=== PATIENT | male | born 1980 | race African-American/Black ===

== ENCOUNTER 2025-05-01 08:58 | Emergency (ER) | payer OTHER, SELFPAY ==
--- NOTE | 2025-05-01 | ECG_ITS ---
Test Reason : CP Blood Pressure : */* mmHG Vent. Rate : 74 BPM Atrial Rate : 74 BPM P-R Int : 156 ms QRS Dur : 112 ms QT Int : 392 ms P-R-T Axes : 33 -27 -25 degrees QTcB Int : 435 ms Normal sinus rhythm Moderate voltage criteria for LVH, may be normal variant ( R in aVL , Nathen product ) Nonspecific T wave abnormality Abnormal ECG No previous ECGs available Referred By: Generic ED Physician Electronically Signed By: GEETHA HAWLEY MD
--- NOTE | ~2025-05-01 | XR_ITS ---
CLINICAL HISTORY: chest pain 1 view chest x-ray Comparison: None provided Findings: No consolidation or effusion. Heart size is normal. No acute fracture. IMPRESSION: 1. No acute findings. This document has been electronically signed by: Brooklynn Morgan MD on 05/01/2025 17:19:59
[2025-05-01 09:07] VITALS: BP 183/102; PULSE 77; RESP 18; TEMP 36.6; O2SAT 98; BMI 33.8
[2025-05-01 09:23] LABS: MANUAL DIFF FLAG NO
[2025-05-01 09:35] LABS: Hematocrit 41.4 % (42.0-52.0); Hemoglobin 13.9 g/dl (14.0-18.0); Imm Gran Abs Auto 0.01 X10*3/uL (0.00-0.03); Imm Gran Pct Auto 0.2 % (0.0-0.4); Lymphocytes Absolute Auto 1.6 X10*3/uL (1.2-4.9); Mean Corpuscular HGB Conc 33.6 g/dl (31.0-36.0); Mean Corpuscular Hemoglobin 28.0 pg (27.0-33.0); Mean Corpuscular Volume 83.3 fL (80.0-98.0); NRBC Abs Auto 0.000 X10*3/uL (0.0-0.012); NRBC Pct Auto 0.0 /100WBC (0.0-0.2); Platelet Count 125 X10*3/uL (160-400); Red Blood Count 4.97 X10*6/uL (4.60-5.80); White Blood Count 4.4 X10*3/uL (4.8-10.8)
[2025-05-01 09:43] LABS: Anion Gap 11 (12-20); Blood Urea Nitrogen 10 mg/dL (9-16); Calcium 8.5 mg/dL (8.4-10.2); Carbon Dioxide 30 mmol/L (22-29); Chloride 106 mmol/L (96-108); Creatinine Clr Calc Pharmacy 112.1; Estimated Glomerular Filt Rate > 60; Potassium 2.8 mmol/L (3.3-5.1); Sodium 144 mmol/L (135-145)
[2025-05-01 09:49] LABS: Troponin-I High Sensitivity 11.7 ng/L (<3.5-35.0)
[2025-05-01 15:05] VITALS: BP 196/113; PULSE 62; RESP 14; TEMP 36.9; O2SAT 96
--- NOTE | 2025-05-01 15:26 | ED.CHESTPAIN ---
HPI - Chest Pain General Chief Complaint: Chest Pain Stated Complaint: palpitations Time Seen by Provider: 05/01/25 15:03 Source: patient, RN notes reviewed and old records reviewed Mode of arrival: ambulatory Limitations: no limitations History of Present Illness ED Provider: Kaylin Headley PA-C HPI narrative: Patient reports sudden onset palpitations that began yesterday morning. Symptoms are intermittent, described as a ?fluttering? or ?racing heart,? and are not present at this moment. The most recent episode occurred approximately 15?20 minutes prior to being brought back from triage. Episodes last only briefly (?seconds?). She recalls a similar episode 3?4 years ago but states no work-up was done at that time. Associated symptoms: denies chest tightness, shortness of breath, light-headedness, syncope, fever, nausea, vomiting, cough, recent illness, falls, or trauma. No known family history of arrhythmia. Reports feeling ?stressed? lately but no specific new stressors identified. Review of Systems: ? General: denies fever or chills. ? Cardiovascular: positive for intermittent palpitations; denies chest pain or pressure. ? Respiratory: denies shortness of breath or cough. ? Gastrointestinal: denies nausea, vomiting, abdominal pain. ? Neurologic: denies dizziness or syncope. No additional systems reviewed. Family History: No known family history of palpitations or arrhythmias reported. Patient has not taken his BP medication in months, he is established with PCP. No reason for noncompliance with medication. MD complaint: chest pain Related Data Previous Rx's ?Medication ?Instructions ?Recorded amlodipine 10 mg tablet 10 mg PO DAILY #90 tabs 05/05/25 dicyclomine 10 mg capsule 10 mg PO BID #180 caps 05/05/25 potassium chloride 20 mEq 20 meq PO .daily #90 tabs 05/08/25 tablet,extended release (K-Tab) losartan 25 mg tablet 75 mg (3 x 25 mg) PO DAILY #270 05/16/25 tabs Allergies Allergy/AdvReac Type Severity Reaction Status Date / Time No Known Allergies (No Known Allergy Verified 05/16/25 14:15 Allergies*) Review of Systems Review of Systems: Yes all other systems are reviewed and are negative PMFSH Past Medical History Attestation statement: The following information was validated with the patient. Source: old records reviewed and nursing notes reviewed Medical History (Updated 05/16/25 @ 14:49 by PSENCER Quintana) HLD (hyperlipidemia) History of alcohol use disorder Palpitations Chest pain IBS (irritable bowel syndrome) Family History Family History (Updated 05/05/25 @ 15:00 by SPENCER Quintana) Brother JOSEPH (hypertrophic obstructive cardiomyopathy) Mother HTN (hypertension) Social History Social History Housing: House Patient Tobacco Use Status: Former Tobacco user e-Cigarette/Vaping Use: Never Used service: Yes ([employer]) Current occupational status: employed Current occupation: [employer] Cognitive needs: No Hearing needs: No Vision needs: No Physical Exam Exam: Exam: General: Appears in no acute distress, appears well nourished body habitus is obese but fit, appears stated age. No septic or ill-appearing. Vitals reviewed normal, PMH/Social and Surgical hx reviewed including allergies and current medications. - reviewed for prior visits here Head: Normocephalic, no obvious trauma or skin lesions noted. Eyes: EOMI, conjunctiva and sclera clear ENMT: dry oral mucosa, uvula midline no trismus Neck: trachea midline, no lymphadenopathy Cardiovascular: peripheral perfusion normal, Regular heart rate, regular rhythm, distal pulses 2+ equal and symmetric, no abdominal bruit Respiratory: no respiratory distress, lungs clear, no chest wall ttp Abdomen: nondistended, nontender Extremities: warm and moving without difficulty Psych: Cooperative and calm Neuro: Alert and oriented. Vital Signs: Vital Signs: Last Vital Signs Temp 98.5 F 05/01/25 21:35 Pulse 82 05/01/25 21:35 Resp 16 05/01/25 21:35 BP 178/100 H 05/01/25 21:35 Pulse Ox 98 05/01/25 21:35 O2 Del Method Room Air 05/01/25 21:35 BMI result Body Mass Index 33.8 Course Course Course Narrative: 5:03 PM 05/01/2025 (Nida Gutiérrez NP): Patient signed out to me from previous provider, pending chest x-ray and 2nd troponin. Currently receiving NS KCL, planned to finish around 193. 1734-- X-Ray of the chest performed. IMPRESSION: 1. No acute findings. 2114-- I had an extensive conversation with this and at the bedside regarding his elevated blood pressure readings, as well as report of palpitations that brought him into the ED today. His troponins were flat. TSH is normal. His repeat potassium is 3.2. I will send a prescription for oral potassium that can be taken tomorrow at the pharmacy. He is on diltiazem at home. He did not take this medication today, resulting in elevated blood pressure readings, but also is noncompliant with this medication. We discussed how he is likely on this medication as he had a history of similar presentations for palpitations, which is possible they found the underlying arrhythmia that diltiazem was preventing being an antiarrhythmic, but adherence with the medication is very important. He is agreeable to plan of care, we will start taking the medication tomorrow. His mother is at bedside and also agrees. I provided him extensive return precautions to the ED, for which he is agreeable. Medications Administered Discontinued Medications Generic Name Dose Route Start Last Admin Trade Name Freq PRN Reason Stop Dose Admin Potassium Chloride 10 meq in 100 mls @ 100 mls/hr 05/01/25 15:30 05/01/25 20:35 Potassium Chloride/H20 IV 05/01/25 19:29 Infused Q1H DONA Infusion Sodium Chloride 1,000 mls @ 999 mls/hr 05/01/25 15:28 05/01/25 16:59 Ns IV 05/01/25 16:28 Infused .Q1H1M ONE Infusion Potassium Chloride 40 meq 05/01/25 17:57 05/01/25 18:39 Potassium Chloride Er 20 Meq Tab.Er.Prt PO 05/01/25 17:58 40 meq ONCE ONE Administration Medical Decision Making Medical Decision Making [facility] Narrative: 44-year-old male presenting with intermittent palpitations since yesterday morning. He is currently asymptomatic, with no chest pain, dyspnea, or syncope. Notable findings include hypokalemia (K 2.8 mmol/L), borderline anemia (Hgb 13.9 g/dL, Hct 41.4%), and mild volume depletion on exam. He is hemodynamically stable and in no acute distress. Differential Diagnosis: Differential includes cardiac arrhythmia (premature atrial/ventricular contractions, paroxysmal atrial arrhythmia), anxiety (diagnosis of exclusion), electrolyte or thyroid abnormalities, and other organic cardiac causes. Rationale for Workup: Serial troponins are being trended to evaluate for acute myocardial injury. TSH is ordered to assess for thyroid dysfunction. Electrolyte panel is being monitored and corrected as indicated. Continuous cardiac monitoring is in place to capture any arrhythmia. Chest X-ray and bedside cardiac ultrasound are planned to evaluate for structural or other organic cardiac pathology. Clinical Reasoning for Ruling Out Pulmonary Embolism: PERC score is 0, indicating low risk for pulmonary embolism; PE is clinically excluded based on validated risk stratification. Disposition Plan: Patient will be signed out to the evening BROOM MACHINE OPERATOR (Marla) with pending labs, imaging, and equipment monitor phototypesetting data. If clinical status remains stable and workup is unremarkable, anticipate discharge home. Outpatient cardiology follow-up may be considered if indicated. Risk Stratification / Guideline-Based Decision Support: Risk stratification for PE using PERC criteria supports exclusion of PE without further imaging. Serial troponin protocol and continuous cardiac monitoring are guideline-endorsed for evaluation of possible acute coronary syndrome and arrhythmia in stable patients with palpitations. Assessment & Plan 44-year-old male with intermittent palpitations; currently hemodynamically stable. Work-up focused on arrhythmia, electrolyte imbalance, thyroid dysfunction, and other organic etiologies. Problem?#1: Palpitations / Possible Cardiac Arrhythmia Assessment: Intermittent palpitations without active symptoms; differential includes premature atrial/ventricular contractions, paroxysmal atrial arrhythmia, anxiety, electrolyte or thyroid abnormalities. Plan: Continuous cardiac monitoring in ED. Trend troponin (initial 11.7; second value pending). TSH ordered to assess for thyroid-related etiology. Electrolyte panel ordered; correct abnormalities. Bedside cardiac ultrasound to evaluate cardiac function. Pending chest X-ray. Anticipate discharge home if rhythm remains stable and labs acceptable; outpatient cardiology follow-up may be considered if workup is normal. Problem?#2: Hypokalemia (K? 2.8 mmol/L) Assessment: Likely contributing to palpitations. Plan: IV potassium replacement 40 mEq infused; continue to monitor serum potassium. Re-check potassium level after replacement. Problem?#3: Borderline Anemia (Hgb 13.9 / Hct 41.4) Assessment: Mild; etiology unclear. Plan: Evaluate for organic causes while in ED; further outpatient evaluation if indicated. Problem?#4: Mild Volume Depletion Assessment: Appears slightly dry on exam. Plan: Administer IV fluids; monitor response. Disposition: Patient to be signed out to evening BROOM MACHINE OPERATOR (Marla) with pending labs, imaging, and equipment monitor phototypesetting data. Expect disposition to home if clinical status remains stable. Differential Diagnosis Differential Diagnoses: The differential diagnosis associated with the presentation includes See [facility] Admission/Observation Consideration of admission/observation: Escalation of care including admission/observation considered Patient would have been admitted to the hospital had his work up had any findings where hospital admission was appropriate and his clinical presentation warranted hospital admission. Lab Data [facility] Lab Attestation statement: I reviewed the patient's lab results. 05/01/25 09:21 05/01/25 20:37 Labs: Lab Results 05/01/25 05/01/25 05/01/25 Range/Units 09:21 15:14 20:37 WBC 4.4 L (4.8-10.8) X10*3/uL RBC 4.97 (4.60-5.80) X10*6/uL Hgb 13.9 L (14.0-18.0) g/dl Hct 41.4 L (42.0-52.0) % MCV 83.3 (80.0-98.0) fL MCH 28.0 (27.0-33.0) pg MCHC 33.6 (31.0-36.0) g/dl RDW 14.6 (11.0-16.0) % Plt Count 125 L (160-400) X10*3/uL MPV 13.3 H (9.4-12.4) fL Immature Gran % (Auto) 0.2 (0.0-0.4) % Neut % (Auto) 57.8 (45-73) % Lymph % (Auto) 35.6 (20-40) % [place] % (Auto) 4.5 (2-11) % Eos % (Auto) 1.4 (0-4) % Baso % (Auto) 0.5 (0-2) % Lymph # (Auto) 1.6 (1.2-4.9) X10*3/uL [place] # (Auto) 0.2 (0.1-1.2) X10*3/uL Eos # (Auto) 0.1 (0.0-0.4) X10*3/uL Baso # (Auto) 0.0 (0.0-0.2) X10*3/uL Abs Immat Gran (auto) 0.01 (0.00-0.03) X10*3/uL Absolute Neuts (auto) 2.6 (2.0-8.3) x10*3/uL Absolute Nucleated RBC 0.000 (0.0-0.012) X10*3/uL Nucleated RBC % (auto) 0.0 (0.0-0.2) /100WBC Sodium 144 (135-145) mmol/L Potassium 2.8 L* 3.2 L (3.3-5.1) mmol/L Chloride 106 (96-108) mmol/L Carbon Dioxide 30 H (22-29) mmol/L Anion Gap 11 L (12-20) BUN 10 (9-16) mg/dL Creatinine 1.03 (0.5-1.4) mg/dL Estim Creat Clear Calc 112.1 Estimated GFR > 60 Random Glucose 97 (60-115) mg/dL Calcium 8.5 (8.4-10.2) mg/dL Magnesium 2.0 (1.6-2.6) mg/dL Troponin I High Sens 11.7 12.7 (<3.5-35.0) ng/L TSH 0.75 (0.32-4.0) uIU/mL Independent Interpretation I performed an independent interpretation of an: EKG and Plain X-Ray Radiology Impression Discussion of test interpretation with radiology: I have reviewed the radiologist's reading. Tests considered The following testing was considered but not selected: If PERC score was not 0, would have considered D dimer and if positive CTA chest Prescription Management I considered prescription management with: Other Chronic Conditions Patient?s care impacted by: Hypertension Social Determinants Patient?s care significantly limited by Social Determinants of Health including: Other Social Determinant of Health Critical Care Time Critical Care Time Critical Care Time: Yes Total Critical Care Time: 40 Attestation: This patient required critical care. Due to the fact that the patient required a significant amount of one on one physician ? patient contact time, ordering and review of studies, arranging urgent treatment with development of a management plan, evaluation of patient?s response to treatment with frequent reassessments, and discussions with other providers this patient required critical care time in excess of 30 minutes. Critical care time was indicated due to the inherent instability and/or potential for instability in this patient. The critical care time that is allocated to this patient is above and beyond any time spent on any other billable procedures performed on this patient. Discharge Plan Discharge Clinical Impression: Palpitations, Acute hypokalemia, Chest pain, Hypertension Patient Disposition: Home, Self-Care Instructions: Heart Palpitations (DC), Hypokalemia (ED) Additional Instructions: Hospital Discharge Summary Discharge Summary Patient Name: Celine : MRN: Date of Discharge: May 01, 2025 Attending Provider: Kaylin Headley PA-C --- Hospital Course Summary This 44-year-old male presented to the Emergency Department on May 01, 2025, with a chief complaint of intermittent palpitations that began the previous morning. The patient described episodes of brief fluttering or racing heart sensations lasting seconds, with the most recent episode occurring 15?20 minutes prior to triage. He reported a similar episode 3?4 years ago without subsequent workup. He denied associated chest pain, dyspnea, lightheadedness, syncope, or recent illness. Initial Assessment and Findings On presentation, the patient was alert, hemodynamically stable, and in no acute distress. Physical examination revealed mild volume depletion. Continuous cardiac monitoring was initiated in the ED. Initial laboratory evaluation demonstrated significant hypokalemia with serum potassium 2.8 mmol/L, borderline anemia with hemoglobin 13.9 g/dL and hematocrit 41.4%, and mildly abnormal troponin-I at 11.7 ng/L. Additional workup included: - Serial troponin measurements: both within normal limits, ruling out acute myocardial injury - TSH: normal, excluding thyroid-related etiology - Chest X-ray: normal, no acute cardiopulmonary pathology - Continuous cardiac monitoring: no arrhythmias detected during ED stay Treatment Provided The patient received intravenous potassium chloride 40 mEq with appropriate monitoring for correction of hypokalemia. Intravenous fluids were administered for volume repletion. The patient remained hemodynamically stable throughout his ED course with resolution of symptoms and no recurrent palpitations on continuous monitoring. Discharge Diagnoses 1. Palpitations, etiology undetermined 2. Hypokalemia (initial K+ 2.8 mmol/L), corrected 3. Borderline anemia (Hgb 13.9 g/dL, Hct 41.4%) 4. Mild volume depletion, resolved Discharge Condition The patient is discharged in stable condition. He is ambulatory, asymptomatic, hemodynamically stable, and tolerating oral intake. Electrolyte abnormalities have been corrected and volume status optimized. Discharge Medications - Potassium chloride extended-release 20 mEq by mouth twice daily for 7 days (or as directed by primary care provider) - Resume all home medications as previously prescribed Discharge Instructions Activity: Resume normal activities as tolerated. Avoid strenuous exercise until cleared by cardiology. Diet: Maintain adequate hydration. Consume potassium-rich foods including bananas, oranges, potatoes, spinach, and beans. Ensure adequate dietary iron intake through lean meats, fortified cereals, and dark leafy greens. Monitoring: Monitor for recurrent palpitations, lightheadedness, chest pain, syncope, or muscle weakness. Seek emergency care immediately if these symptoms occur. Follow-Up Care (Critical) 1. Primary Care Provider: Schedule appointment within 3?5 days for: - Repeat complete metabolic panel to confirm sustained normalization of potassium levels - Further investigation of hypokalemia etiology including dietary history, medication review, and consideration of urine electrolytes if cause remains unclear - Evaluation of borderline anemia with consideration for iron studies (serum ferritin, iron, total iron binding capacity, transferrin saturation) to assess for iron deficiency - Review of all laboratory results and coordination of specialty care 2. Cardiology: Schedule outpatient appointment within 1?2 weeks for: - Comprehensive evaluation of intermittent palpitations - Consideration of outpatient ambulatory cardiac monitoring (Holter monitor or event recorder) for symptom-rhythm correlation, particularly given infrequent episodic nature of symptoms - Echocardiography if indicated based on clinical assessment - Risk stratification and determination of need for additional cardiac workup Patient Education The patient was counseled regarding: - The importance of maintaining adequate hydration and electrolyte intake - Recognition of warning symptoms requiring immediate medical attention (chest pain, severe palpitations, syncope, severe weakness) - The need for timely follow-up to determine the underlying cause of palpitations and hypokalemia - Medication adherence, particularly potassium supplementation as prescribed Return Precautions Return to the Emergency Department or call 911 if you experience: - Recurrent or persistent palpitations - Chest pain or pressure - Shortness of breath - Lightheadedness, dizziness, or fainting - Severe muscle weakness or cramping - Any other concerning symptoms The patient verbalized understanding of all discharge instructions, follow-up plans, and return precautions. Questions were answered to the patient's satisfaction. Disposition: Discharged to home in stable condition with clear follow-up plan. --- Kaylin Headley PA-C Emergency Department May 01, 2025 Prescriptions: No Action potassium chloride [K-Tab] 20 mEq tablet extended release 20 meq PO .daily Qty: 90 1RF dicyclomine 10 mg capsule 10 mg PO BID Qty: 180 0RF amlodipine 10 mg tablet 10 mg PO DAILY Qty: 90 1RF losartan 25 mg tablet 75 mg PO DAILY Qty: 270 1RF Referrals: [facility] [Provider Group] Clinical Impression: Palpitations; Chest pain; Hypertension Stand Alone Forms: Work/School Release Interventions: ED Discharge Assessment Last Done: 05/01/25 21:35 Discharge Date/Time: 05/01/25 21:35 Print Language: [place] Zealander
[2025-05-01] MEDS: Potassium Chloride/H20 10 MEQ/100 ML PIGGYBACK 100 MEQ IV ×4 (15:58→19:35)
[2025-05-01 16:18] LABS: Magnesium 2.0 mg/dL (1.6-2.6)
[2025-05-01 18:01] VITALS: BP 196/107; PULSE 72; RESP 21; TEMP 36.3; O2SAT 97
[2025-05-01 18:14] LABS: Troponin-I High Sensitivity 12.7 ng/L (<3.5-35.0)
[2025-05-01] MEDS: Potassium Chloride ER 20 MEQ TAB.ER.PRT 40 MEQ PO (18:39)
[2025-05-01 20:04] VITALS: BP 178/103; PULSE 84; RESP 23; TEMP 36.6; O2SAT 98
--- NOTE | 2025-05-01 20:42 | PC.NURSE ---
Repeat potassium level drawn and sent for analysis. Patient denies complaints at this time.
[2025-05-01 20:48] LABS: Potassium 3.2 mmol/L (3.3-5.1)
--- NOTE | 2025-05-01 21:09 | PC.NURSE ---
ESTEBAN Alva at bedside speaking with patient regarding plan.
[2025-05-01 21:35] VITALS: BP 178/100; PULSE 82; RESP 16; TEMP 36.9; O2SAT 98
== END 2025-05-01 21:35 | disposition home or self-care (01) ==
PROVIDERS: Nurse Practitioner; Physician Assistant Medical; Emergency Provider Student in an Organized Health Care Education/Training Program
DX: R00.2 Palpitations (principal); E87.6 Hypokalemia; R07.9 Chest pain, unspecified; I10 Essential (primary) hypertension; E86.9 Volume depletion, unspecified; Z79.899 Other long term (current) drug therapy
CPT/HCPCS: 36415; 71045; 80048; 83735; 84132; 84443; 84484; 85025; 93005; 96361; 96365; 96366; 99284; J3480

== ENCOUNTER → 2025-05-01 09:03 | Outpatient (BNV) | payer OTHER, SELFPAY | PROVIDERS: Visit Provider Internal Medicine Cardiovascular Disease | DX: R94.31 Abnormal electrocardiogram [ECG] [EKG] (principal); R07.9 Chest pain, unspecified | CPT/HCPCS: 93010 ==

== ENCOUNTER → 2025-05-01 16:43 | Outpatient (BNV) | payer OTHER, SELFPAY | PROVIDERS: Emergency Provider Student in an Organized Health Care Education/Training Program; Visit Provider Radiology Diagnostic Radiology | DX: R07.9 Chest pain, unspecified (principal) | CPT/HCPCS: 71045 ==

== ENCOUNTER 2025-05-05 14:48 | Outpatient (AMB) | payer OTHER, SELFPAY ==
--- NOTE | 2025-05-05 14:50 | MHC.PC.OV ---
Vital Signs 05/05/25 14:55 05/05/25 15:30 Height 5 ft 9 in Weight 108.976 kg BMI 35.5 BP 188/104 H 170/100 H Respiration 14 Pulse 93 Pulse Source Pulse Oximeter Temp 98.6 F Temp Source Temporal Artery Scan Pulse Oximetry (%) 97 Oxygen Delivery Method Room Air Intake Visit Reasons: high BP Paper Carrier Required: No Accompanied by: Spouse Allergies No Known Allergies (No Known Allergies*) Allergy (Verified 05/05/25 14:50) Medication List - Last Reconciled 05/05/25 by SPENCER Quintana dicyclomine 10 mg PO BID hydrochlorothiazide 25 mg PO DAILY losartan 25 mg PO DAILY Tobacco use date assessed: 05/05/25 Dental Screening Dental Screen Date: 05/05/25 Did you have a dental visit in the last 12 months?: No Did you have a dental problem in the last 6 months where you did not have access to dental care?: No Was dental information given to patient?: Patient has dentist HPI HPI Comments History of Present Illness Details 44-year-old male with history of hypertension, irritable bowel syndrome, history of alcohol use disorder presenting to the office today for management of chronic conditions and to establish care. Here is here today with his , Corina. He is a former patient at [facility]. He presented to [facility] ED on 05/01 due to sudden-onset palpitations as well as chest pains. The palpitations were described as intermittent and has a fluttering or racing heart lasting for several minutes sometimes sec. He also describes a chest pressure without any radiation as well. He has constant headaches. There is occasional blurred vision that then comes back. His blood pressures were found to be significantly elevated, the highest being 196/113. Today in the office, his blood pressure is 188/104. He had previously been taking diltiazem but has been non noncompliant for months. He states he was diagnosed with hypertension around 2003, age 24. At that time he was prescribed triamterene-hydrochlorothiazide but discontinued this on his own as well. In the ED, EKG showed NSR, rate [address]-T abnormality but no acute ischemic changes. There was also possible criteria for LVH. he does have family history in his brother who had Christa and did pass away from this at a young age. He denies any exertional symptoms. His potassium was low at 2.8 and he was given IV potassium chloride. He was discharged with potassium chloride but has not been taking this. CXR was unremarkable. PERC score was 0, low risk for PE. Additional labs significant for mild anemia with H/H13.9/41.4. Thrombocytopenia of 125. Renal function an additional electrolyte levels within normal limits. Troponin levels within normal limits and flat. TSH 0.75. He is currently asymptomatic Hypertension-blood pressure in the office today 188/104, recheck 170/100. Med noncompliance as above. IBS-with diarrhea, very often. Associated with abdominal cramping. He will take loperamide as needed. AUD-in sustained remission. Positive family supports Obesity-BMI 35.5 Concerns: As above Health maintenance: Colonoscopies to start at age 45 ROS: see hpi EXAM: Constitutional - Awake and Alert, No apparent distress Eyes - PERRL Cardiovascular - S1S2, RRR, 1+ edema Respiratory - Normal lung expansion, Normal respiratory effort, No respiratory distress, CTA bilaterally Extremities - no calf tenderness bilaterally, no swelling Skin - Warm/Dry Neurological - Alert & oriented x3 Psychological - Appropriate affect [facility] Medical History (Updated 05/05/25 @ 15:41 by SPENCER Quintana) Palpitations Chest pain IBS (irritable bowel syndrome) Family History (Updated 05/05/25 @ 15:00 by SPENCER Quintana) Brother HOCM (hypertrophic obstructive cardiomyopathy) Mother HTN (hypertension) Social History Housing: House Patient Tobacco Use Status: Former Tobacco user e-Cigarette/Vaping Use: Never Used service: Yes ([employer]) Current occupational status: employed Current occupation: [employer] Cognitive needs: No Hearing needs: No Vision needs: No Questionnaire PHQ-9 Over the last 2 weeks, how often have you been bothered by any of the following problems? 1. Little interest or pleasure in doing things: not at all 2. Feeling down, depressed, or hopeless: not at all 3. Trouble falling or staying asleep, or sleeping too much: more than half the days 4. Feeling tired or having little energy: several days 5. Poor appetite or overeating: not at all 6. Feeling bad about yourself - or that you are a failure or have let yourself or your family down: not at all 7. Trouble concentrating on things, such as reading the newspaper or watching television: not at all 8. Moving or speaking so slowly that other people could have noticed. Or the opposite - being so fidgety or restless that you have been moving around a lot more than usual: not at all 9. Thoughts that you would be better off or of hurting yourself in some way: not at all Total score: 3 Depression Screening Interpretation: Positive Depression Screening Done: Yes Source: Developed by Drs. Moe Garcia, Destini De La Torre, Troy Bazzi and colleagues, with an educational vazquez from [employer]. Thrive Questionnaire Date Thrive assessed: 05/05/25 I am a: Patient What is your living situation today?: I have a steady place to live Within the past 12 months, did the food you bought not last and you didn't have the money to get more?: Never true Within the past 12 months, did you worry whether your food would run out before you got money to buy more?: Never true Do you have trouble paying for medicines?: No Do you have trouble getting transportation to medical appointments?: No Do you have trouble paying your heating and electricity bill?: No Do you have trouble taking care of your child, family member or friend?: No Do you have trouble with day-to-day activities such as bathing, preparing meals, shopping, managing finances, etc.?: No Are you currently unemployed and looking for a job?: No Are you interested in more education?: No Please select the resources that you would like help with: None THRIVE Score: 0 MARLO-7 AMB Questionnaire MARLO-7 Date MARLO - 7 assessed: 05/05/25 Feeling nervous, anxious, or on edge: 0 = Not at all Not being able to stop or control worryin = Several days Worrying too much about different things: 1 = Several days Trouble relaxin = Not at all Being so restless that it is hard to sit still: 1 = Several days Becoming easily annoyed or irritable: 2 = More than half the days Feeling afraid as if something awful might happen: 0 = Not at all Total MARLO-7 score (0-4 normal; 5-9 mild; 10-14 moderate; 15-21 severe): 5 Source: Developed by Drs. Moe Garcia, Destini De La Torre, Troy Bazzi and colleagues, with an educational vazquez from [employer]. Physical exam (Primary Care) Vital Signs: Last Vital Signs Temp 98.6 F 05/05/25 14:55 Pulse 93 05/05/25 14:55 Resp 14 05/05/25 14:55 BP 170/100 H 05/05/25 15:30 Pulse Ox 97 05/05/25 14:55 Oxygen Delivery Method Room Air 05/05/25 14:55 BMI result Body Mass Index 35.5 Tobacco/Smoking Status: Tobacco use Status Tobacco use date assessed 05/05/25 05/05/25 14:57 Patient Tobacco Use Status Former Tobacco user 05/05/25 14:57 e-Cigarette/Vaping Use Never Used 05/05/25 14:57 Depression Screening Interpretation: Positive Coding Level of Care Code New Pt Level 4 (35596) Add On Problem Visit Only Diagnoses Encounter to establish care Z76.89 Poorly-controlled hypertension I10 Chest pain R07.9 Palpitations R00.2 IBS (irritable bowel syndrome) K58.9 Hypokalemia E87.6 Assessment & Plan Assessment & Plan (1) Encounter to establish care: Code(s): Z76.89 - Persons encountering health services in other specified circumstances Category: Medical Plan: 44-year-old male presenting to establish care and for posterior evaluation (2) Poorly-controlled hypertension: Code(s): I10 - Essential (primary) hypertension Category: Medical Plan: Noncompliant with medications. Question underlying etiology. Does have fh hocm. Was in the ED several days ago with poorly controlled hypertension. Troponins were flat. Discharged home without medication. He is currently asymptomatic. Discussed signs and symptoms prompting emergent evaluation. Will initiate amlodipine 10 mg daily and losartan 25 mg daily. Counseled on side effects. Labs ordered to evaluate renal function electrolytes. Echocardiogram ordered. Check for any microalbuminuria (3) Chest pain: Code(s): R07.9 - Chest pain, unspecified Category: Medical Plan: Likely secondary to uncontrolled hypertension. Currently asymptomatic and was nonexertional. Plan as above (4) Palpitations: Code(s): R00.2 - Palpitations Category: Medical Plan: EKG was without any dysrhythmia. Possibly r/t potassium levels but still occurring despite normalization of potassium levels. Holter monitor ordered (5) IBS (irritable bowel syndrome): Code(s): K58.9 - Irritable bowel syndrome, unspecified Category: Medical Plan: Counseled on low FODMAP diet and given written information. Trial dicyclomine 10 mg twice daily. Counseled on dosing and side effects. Can still use Imodium as needed (6) Hypokalemia: Code(s): E87.6 - Hypokalemia Category: Medical Plan: Possibly related to diarrhea. Recheck renal function electrolyte levels as well as urine potassium. We will initiate repletion as needed Plan Follow-up in the office in 10 days, labs as ordered below. Orders: Orders Complete Blood Count Auto Diff Today E87.6 - Hypokalemia, I10 - Essential (primary) hypertension, R07.9 - Chest pain, unspecified, Z76.89 - Persons encountering health services in other specified circumstances Lipid Panel Today E87.6 - Hypokalemia, I10 - Essential (primary) hypertension, R07.9 - Chest pain, unspecified, Z76.89 - Persons encountering health services in other specified circumstances Hemoglobin A1c Today E87.6 - Hypokalemia, I10 - Essential (primary) hypertension, R07.9 - Chest pain, unspecified, Z76.89 - Persons encountering health services in other specified circumstances Microalbumin, Random (w Creat) Today E87.6 - Hypokalemia, I10 - Essential (primary) hypertension, R07.9 - Chest pain, unspecified, Z76.89 - Persons encountering health services in other specified circumstances Potassium Urine Random Today E87.6 - Hypokalemia, I10 - Essential (primary) hypertension, R07.9 - Chest pain, unspecified, Z76.89 - Persons encountering health services in other specified circumstances Thyroid Stimulating Hormone Today R07.9 - Chest pain, unspecified CA echo transthoracic complete Today I10 - Essential (primary) hypertension, R07.9 - Chest pain, unspecified, Z76.89 - Persons encountering health services in other specified circumstances, Z82.49 - Family history of ischemic heart disease and other diseases of the circulatory system ECG 7 day holter monitor Today E87.6 - Hypokalemia, I10 - Essential (primary) hypertension, R07.9 - Chest pain, unspecified, Z76.89 - Persons encountering health services in other specified circumstances Basic Metabolic Panel Today E87.6 - Hypokalemia, I10 - Essential (primary) hypertension, R07.9 - Chest pain, unspecified, Z76.89 - Persons encountering health services in other specified circumstances Liver Panel Today E87.6 - Hypokalemia, I10 - Essential (primary) hypertension, R07.9 - Chest pain, unspecified, Z76.89 - Persons encountering health services in other specified circumstances TSH reflex Free T4 Today E87.6 - Hypokalemia, I10 - Essential (primary) hypertension, R07.9 - Chest pain, unspecified, Z76.89 - Persons encountering health services in other specified circumstances Free T4 (Free Thyroxine) Today R07.9 - Chest pain, unspecified Medications: New amlodipine 10 mg PO DAILY 90 tabs 1RF dicyclomine 10 mg PO BID 180 caps 0RF losartan 25 mg PO DAILY 90 tabs 1RF Discontinued potassium chloride ER (K-Tab) Discontinued Reason: Patient Completed Course 40 mEq (2 x 20 mEq) PO ONCE 2 tabs 0RF
[2025-05-05 14:55] VITALS: BP 188/104; PULSE 93; RESP 14; TEMP 37; O2SAT 97; BMI 35.5
[2025-05-05 15:30] VITALS: BP 170/100
--- OUTSIDE RECORDS SUMMARY | 2025-05-05 19:52 | XMS_ITS | Encounter Summary ---
Author Organization [facility] Address [address] [place] [address] Care Team Providers Care Engrosser Name Role Phone Yandel Gaines MD Primary Care Provider [phone] Reason for Visit * Reason Onset Date Comments Hospitalization/ER 05/02/2025 Encounter Details Date Type Department Care Team (Late st Contact Info) Description 05/02/2025 [place]phone [place] [facility] [place] [address] [place] [address] Yandel Gaines MD [address] [place] [address] Social History Tobacco Use Types Packs/Day Years Used Date Smoking Tobacco: Former Smokeless Tobacco: Former Alcohol Use Standard Drinks/Week Comments No 0 (1 standard drink = 0.6 oz pur e alcohol) Sex and Gender Information Value Date Recorded Sex Assigned at Not on file Legal Sex Male 10:00 PM EST Gender Identity Not on file Sexual Orientation Not on file documented as of this encounter Progress Notes * Rema Vazquez RN - 05/02/2025 12:14 PM EST Pt refused an er f/u states he just needs BP meds refilled, pt has not been seen in 2 years and would need a follow up he declined and ended the call * Raven Clinton - 05/02/2025 8:41 AM EST Hospital/ER follow up appointment needed Hospital patient was treated at: [facility] Was this only an ER visit or was the patient admitted to the hospital? ER Visit only Date of visit if ER visit only: 05/01/2025 If patient was admitted what was the date of discharge? 05/01/2025 Reason/diagnosis for visit or stay: heart palpitations, chest pain and low potasium When was the patient told to follow up? TANA Was visit or stay related to an injury? If yes, what was the date of injury (DOI)? No If yes, was the injury due to: Not 3rd constitution party related documented in this encounter Plan of Treatment Not on file documented as of this encounter Visit Diagnoses Not on filedocumented in this encounter Care Teams Engrosser Relationship Specialty Start Date End Date Yandel Gaines MD [address] [place] [address] PCP - General Internal Medicine 03/25/21 documented as of this encounter
--- OUTSIDE RECORDS SUMMARY | 2025-05-05 19:52 | XMS_ITS | Clinical Summary ---
Author Organization [facility] [address] [place] [facility] Address [address] [place] [address] Phone Care Team Providers Care Mold Sander Name Role Phone Yandel Gaines MD Primary Care Provider [phone] Allergies No known active allergies Medications diclofenac (VOLTAREN) 1 % topical gel Apply 2 g topically 4 times daily. Shoulder Pain 3 Active dilTIAZem (TIAZAC) 120 mg 24 hr capsule Take 1 Capsule by mouth daily. 3 Active loperamide (IMODIUM) 2 mg capsule Take 1 Capsule by mouth 4 times daily as needed for Diarrhea. 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 IBS (irritable bowel syndrome) 02/07/2019 Thrombocytopenia 12/09/2017 Overview (05/20/2024): Follows with hematology Leukopenia 11/23/2017 Encounters Date Type Department Care Team Description 05/02/2025 Telephone [facility] [address] [place], [place] [phone] Yandel Gaines MD 02/14/2025 4:15 PM EDT Office Visit Walk-In Clinic - [address] [address] [place] Pain in throat (Primary Dx) 02/14/2025 Telephone Adult [address] [address] Yandel Gaines MD from Last 3 Months Immunizations Immunization Administration Dates Next Due Td Tetanus diptheria (Tdvax) 7yo and older 11/30 Tdap Tetanus diptheria acell ular pertussis (Boostrix; Adacel) 7yo and older 12/01/2018 Surgical History Surgery Date Site/Laterality Comments WISDOM TOOTH EXTRACTION PROCEDURE: HISTORICAL WISDOM TEETH EXTRACTION Medical History Medical History Date Comments Hypertension DX:Hypertension Hx of major depression DX:Hx of major depression PTSD (post-traumatic stress disorder) DX:PTSD (post-traumatic stress disorder) Thrombocytopenia (CMS/HCC V24) 12/09/2017 D X:Thrombocytopenia (HCC); COMMENT: Follows with hematology Leukopenia 11/23/2017 DX:Leukopenia IBS (irritable bowel syndrome) 02/07/2019 D X:IBS (irritable bowel syndrome) Thickening of wall of gallbladder DX:Thickening of wall of gallbladder Musculoskeletal strain DX:Muscul oskeletal strain Back pain DX:Back pain Family History Medical History Relation Name Comments Hypertension Brother 1 Other: heart disease Brother 1 enlarge d heart at 23 No Known Problems Brother 2 No Known Problems Brother 3 No Known Problems Daughter 1 No Known Problems Daughter 2 Throat cancer Father Hypertension Mother No Known Problems Sister No Known Problems Son 1 No Known Problems Son 2 Relation Name Status Comments Brother 1 Brother 2 Alive Brother 3 Alive Daughter 1 Alive Daughter 2 Alive Father Alive Mother Alive Sister Alive Son 1 Alive Son 2 Alive Social History Tobacco Use Types Packs/Day Years Used Date Smoking Tobacco: Former Smokeless Tobacco: Former Alcohol Use Standard Drinks/Week Comments No 0 (1 standard drink = 0.6 oz pur e alcohol) Sex and Gender Information Value Date Recorded Sex Assigned at Not on file Legal Sex Male 10:00 PM EST Gender Identity Not on file Sexual Orientation Not on file Last Filed Vital Signs Vital Sign Reading Time Taken Comments Blood Pressure 162/88 02/14/2025 4:33 PM EDT Pulse 80 02/14/2025 4:20 PM EDT Temperature 36.7 C (98.1 F) 02/14/2025 4:20 PM EDT Respiratory Rate 12 02/14/2025 4:20 PM EDT Oxygen Saturation 98% 02/14/2025 4:20 PM EDT Inhaled Oxygen Concentration - - Weight 107 kg (236 lb) 01/01/2024 9:43 AM EDT Height 177.8 cm (5' 10 ) 01/01/2024 9:43 AM EDT Body Mass Index 33.86 01/01/2024 9:43 AM EDT Plan of Treatment Health Maintenance Due Date Last Done Comments Pneumococcal Vaccine: Pediatrics (0 to 5 Years) and At-Risk Patients (6 to 49 Years) (1 of 2 - PCV) 1999 IPV Vaccines (2 of 3 - Adult catch-up series) 04/07/2001 03/10/2001 HPV Vaccines (1 - 3-dose SCDM series) 2007 HIV Screening 04/26/2022 Social Influencers of Health Screening 04/26/2022 Hypertension/CHF/CAD Annual BMP Blood Test 04/30/2024 04/30/2023 Depression Screening 05/25/2024 COVID-19 Vaccine ( - 2024- season) 2025 Influenza Vaccine (#1) 2025 4, 02/23/2013, 02/18/2012, Additional history exists Cholesterol Screening (Lipid Panel) 03/31/2028 03/31/2023 DTaP,Tdap,and Td Vaccines (6 - Td or Tdap) 12/01/2028 12/01/2018, 11/30/2014, 07/01/2012, Additional history exists RSV Immunization Adult Patients (1 - 1-dose 75+ series) 2055 MMR Vaccines Aged Out 03/10/2001 No longer eligi ble based on patient's age to complete this topic Meningococcal ACWY Vaccine Aged Out 03/10/2001 N o longer eligible based on patient's age to complete this topic Hepatitis A Vaccines Completed 06/21/2002, 03/10/20 Hepatitis B Vaccines Completed 05/29/2004, 12/27/2003, 11/21/2003 Varicella Vaccines Aged Out 07/23/2010 No longer eligible based on patient's age to complete this topic Hepatitis C Screening Completed 12/09/2017 HIB Vaccines Aged Out No longer eligi ble based on patient's age to complete this topic Meningococcal B Vaccine Aged Out No l onger eligible based on patient's age to complete this topic RSV Immunization Patients Under 20 months Aged Out No longer eligible based on patient's age to complete this topic Procedures Procedure Name Priority Date/Time Associated Diagnosis Comments CBC WITH AUTO DIFFERENTIAL Routine 02/14/2025 5:07 PM EDT Pain in throat THYROID STIMULATING HORMONE WITH REFLEX TO FREE T4 AND FREE T3 Routine 02/14/2025 5:07 PM EDT Pain in throat CBC AND DIFFERENTIAL Routine 02/14/2025 5:07 PM EDT Pain in throat POC RAPID STREP A Routine 02/14/2025 4:3 7 PM EDT Pain in throat POC RAPID [id number], MOLECULAR Routine 02/14/2025 4:37 PM EDT Pain in throat ANNUAL BMP BLOOD TEST Routine 04/30/2023 LIPID PANEL Routine 03/31/2023 HEPATITIS C SCREENING Routine 12/09/2017 from Last 3 Months or Most Recently Relevant to Health Maintenance Results * Thyroid stimulating hormone with reflex to free t4 and free t3 (02/14/2025 5:07 PM EDT) TSH 1.04 0.40 - 4.00 mcIU/mL LAB CHEMISTRY METHOD 02/14/2025 8:15 PM EDT [facility] Blood Venous blood specimen / Unknown Venipuncture / Unknown 02/14/2025 5:07 PM EDT 02/14/2025 5:07 PM EDT Gil PALMER LAB BLOOD ORDERABLES Final Result [facility] [address] [place] [address], * (ABNORMAL) CBC auto differential (02/14/2025 5:07 PM EDT) WBC 4.2(L) 4.8 - 10.8 K/mcL LAB HEMETOLOGY METHOD 02/14/2025 7:46 PM EDT [facility] RBC 4.70 4.50 - 5.50 M/mcL LAB HEMETOLOGY METHOD 02/14/2025 7:46 PM EDT [facility] Hemoglobin 13.6 13.5 - 17.5 g/dL LAB HEMETOLOGY METHOD 02/14/2025 7:46 PM EDT [facility] Hematocrit 40.5(L) 42.0 - 54.0 % LAB HEMETOLOGY METHOD 02/14/2025 7:46 PM EDT [facility] MCV 85.6 79.0 - 98.0 FL LAB HEMETOLOGY METHOD 02/14/2025 7:46 PM EDT [facility] MCH 28.8 27.0 - 32.0 pcg LAB HEMETOLOGY METHOD 02/14/2025 7:46 PM EDT [facility] MCHC 33.6 32.0 - 37.0 g/dL LAB HEMETOLOGY METHOD 02/14/2025 7:46 PM EDT [facility] RDW 14.8 11.0 - 15.0 % LAB HEMETOLOGY METHOD 02/14/2025 7:46 PM EDT [facility] Platelets 136 130 - 400 K/mcL LAB HEMETOLOGY METHOD 02/14/2025 7:46 PM EDT [facility] MPV LAB HEMETOLOGY METHOD 02/14/2025 7:46 PM EDT [facility] Comment:Not Measured NRBC 0.0 <1.0 % LAB HEMETOLOGY METHOD 02/14/2025 7:46 PM [facility] NRBC Absolute 0.00 <0.10 K/mcL LAB HEMETOLOGY METHOD 02/14/2025 7:46 PM [facility] Neutrophils Relative 47.2 % LAB HEMETOLOGY METHOD 02/14/2025 7:46 PM [facility] Lymphocytes Relative 44.1 % LAB HEMETOLOGY METHOD 02/14/2025 7:46 PM [facility] Monocytes Relative 4.8 % LAB HEMETOLOGY METHOD 02/14/2025 7:46 PM [facility] Eosinophils Relative 3.4 % LAB HEMETOLOGY METHOD 02/14/2025 7:46 PM [facility] Basophils Relative 0.5 % LAB HEMETOLOGY METHOD 02/14/2025 7:46 PM [facility] Immature Granulocytes Relative 0.0 % LAB HEMETOLOGY METHOD 02/14/2025 7:46 PM [facility] Neutrophils Absolute 1.97 1.50 - 7.00 K/mcL LAB HEMETOLOGY METHOD 02/14/2025 7:46 PM [facility] Lymphocytes Absolute 1.84 1.00 - 5.00 K/mcL LAB HEMETOLOGY METHOD 02/14/2025 7:46 PM [facility] Monocytes Absolute 0.20 0.20 - 1.00 K/mcL LAB HEMETOLOGY METHOD 02/14/2025 7:46 PM [facility] Eosinophils Absolute 0.14 0.00 - 0.50 K/mcL LAB HEMETOLOGY METHOD 02/14/2025 7:46 PM [facility] Basophils Absolute 0.02 0.00 - 0.20 K/mcL LAB HEMETOLOGY METHOD 02/14/2025 7:46 PM EDT [facility] Immature Granulocytes Absolute 0.00 0.00 - 0.03 K/[facility] LAB HEMETOLOGY METHOD 02/14/2025 7:46 PM EDT [facility] Blood Venous blood specimen / Unknown Venipuncture / Unknown 02/14/2025 5:07 PM EDT 02/14/2025 5:07 PM EDT [place] LAB BLOOD ORDERABLES Final Result [facility] [address] [place] [address], [place] [phone] * Poc Rapid [id number], MOLECULAR (02/14/2025 4:37 PM EDT) [facility] COVID-19/SARS- COV-2 Rapid POC Negative Negative Swab Nasopharyngeal structure / Unknown 02/14/2025 4:37 PM EDT Gil PALMER POINT OF CARE TEST ENTER/E DIT ORDERABLES Final Result * POC rapid strep A manually resulted (02/14/2025 4:37 PM EDT) [facility] Rapid Strep A Screen POC Negative Negative Swab Structure of anterior region of neck / Unknown 02/14/2025 4:37 PM EDT Gil PALMER POINT OF CARE TEST ENTER/E DIT ORDERABLES Final Result * Annual BMP Blood Test (04/30/2023) [facility] Annual BMP Blood Test abstracted [facility] Provider HEALTH MAINTENANCE Final Result * (ABNORMAL) Lipid panel (03/31/2023) [facility] LDL/HDL Ratio 4 0 - 4 Triglycerides 68 0 - 150 mg/dL Cholesterol 228(A) 0 - 200 mg/dL HDL 66 >=40 mg/dL LDL Cholesterol 149(A) 0 - 100 mg/dL Blood Venous blood specimen / Unknown Historical Provider LAB BLOOD ORDERABLES Shawna l Result * Hepatitis C Screening (12/09/2017) Hepatitis C Screening abstracted Historical Provider HEALTH MAINTENANCE Final Result from Last 3 Months or Most Recently Relevant to Health Maintenance Insurance [facility] Care Teams Mold Sander Relationship Specialty Start Date End Date Yandel Gaines MD [address] [place] [id number] PCP - General Internal Medicine 03/25/21
--- OUTSIDE RECORDS SUMMARY | 2025-05-05 19:52 | XMS_ITS ---
Author Name [facility] Organization Unknown Care Team Organization Name Specialty Phone Email Start Date End Da april [facility] 04/01/2022 01/11/2024
== END 2025-05-05 15:31 | disposition home or self-care (01) ==
LOC: HO.HMCHD 14:48
PROVIDERS: Visit Provider Physician Assistant
DX: Z76.89 Persons encountering health services in other specified circumstances (principal); I10 Essential (primary) hypertension; R07.9 Chest pain, unspecified; R00.2 Palpitations; K58.9 Irritable bowel syndrome, unspecified; E87.6 Hypokalemia

== ENCOUNTER 2025-05-06 09:02 | Outpatient (REF) | payer OTHER, SELFPAY ==
--- OUTSIDE RECORDS SUMMARY | 2025-05-06 09:05 | XMS_ITS | Encounter Summary ---
Author Organization [facility] Address [address] [place] [address] Care Team Providers Care Metal Base Blocker Name Role Phone Yandel Gaines MD Primary Care Provider [phone] Reason for Visit * Reason Onset Date Comments Hospitalization/ER 05/02/2025 Encounter Details Date Type Department Care Team (Late st Contact Info) Description 05/02/[address] [facility] [address] [place] [address] Yandel Gaines MD [address] [place] [address] Social History Tobacco Use Types Packs/Day Years [...] appointment needed Hospital patient was treated at: [facility] Was this only an ER visit or [...] was the injury due to: Not 3rd alliance party related documented in this encounter Plan of Treatment Not on file documented as of this encounter Visit Diagnoses Not on filedocumented in this encounter Care Teams Metal Base Blocker Relationship Specialty Start Date End Date Yandel Gaines MD [address] [place] [address] PCP - General Internal Medicine 03/25/21 documented as of this encounter
--- OUTSIDE RECORDS SUMMARY | 2025-05-06 09:05 | XMS_ITS | Clinical Summary ---
Author Organization [facility] [address] [facility] Address [address] [place] [address] Phone Care Team Providers Care Emissions Testing And Repair Technician Name Role Phone Yandel Gaines MD Primary Care Provider [phone] Allergies No known active allergies Medications diclofenac [...] Care Team Description 05/02/2025 Telephone Adult Medicine [facility] [address] [place], [place] [phone] Yandel Gaines MD 02/14/2025 4:15 PM EDT Office Visit Walk-In Clinic - [address] [phone] [place] Pain in throat (Primary Dx) 02/14/2025 Telephone Adult [address] [address] Yandel Gaines MD from Last 3 Months [...] PM EDT Pain in throat POC RAPID [id number], MOLECULAR Routine 02/14/2025 4:37 PM EDT Pain [...] LAB CHEMISTRY METHOD 02/14/2025 8:15 PM EDT [facility] Blood Venous blood specimen / Unknown Venipuncture / Unknown 02/14/2025 5:07 PM EDT 02/14/2025 5:07 PM EDT Gil [place] LAB BLOOD ORDERABLES Final Result [facility] [address] [place] [address], * (ABNORMAL) CBC auto differential (02/14/2025 5:07 PM EDT) WBC 4.2(L) 4.8 - 10.8 K/mcL LAB HEMETOLOGY METHOD 02/14/2025 7:46 PM EDT [facility] RBC 4.70 4.50 - 5.50 M/mcL LAB HEMETOLOGY METHOD 02/14/2025 7:46 PM EDT [facility] Hemoglobin 13.6 13.5 - 17.5 g/dL LAB HEMETOLOGY METHOD 02/14/2025 7:46 PM EDT [facility] Hematocrit 40.5(L) 42.0 - 54.0 % LAB HEMETOLOGY METHOD 02/14/2025 7:46 PM EDT [facility] MCV 85.6 79.0 - 98.0 FL LAB HEMETOLOGY METHOD 02/14/2025 7:46 PM EDT [facility] MCH 28.8 27.0 - 32.0 pcg LAB HEMETOLOGY METHOD 02/14/2025 7:46 PM EDT [facility] MCHC 33.6 32.0 - 37.0 g/dL LAB HEMETOLOGY METHOD 02/14/2025 7:46 PM EDT [facility] RDW 14.8 11.0 - 15.0 % LAB HEMETOLOGY METHOD 02/14/2025 7:46 PM EDT [facility] Platelets 136 130 - 400 K/mcL LAB HEMETOLOGY METHOD 02/14/2025 7:46 PM EDT [facility] MPV LAB HEMETOLOGY METHOD 02/14/2025 7:46 PM EDT [facility] Comment:Not Measured NRBC 0.0 <1.0 % LAB HEMETOLOGY METHOD 02/14/2025 7:46 PM [facility] NRBC Absolute 0.00 <0.10 K/mcL LAB HEMETOLOGY METHOD 02/14/2025 7:46 PM [facility] Neutrophils Relative 47.2 % LAB HEMETOLOGY METHOD 02/14/2025 7:46 PM [facility] Lymphocytes Relative 44.1 % LAB HEMETOLOGY METHOD 02/14/2025 7:46 PM [facility] Monocytes Relative 4.8 % LAB HEMETOLOGY METHOD 02/14/2025 7:46 PM [facility] Eosinophils Relative 3.4 % LAB HEMETOLOGY METHOD 02/14/2025 7:46 PM [facility] Basophils Relative 0.5 % LAB HEMETOLOGY METHOD 02/14/2025 7:46 PM [facility] Immature Granulocytes Relative 0.0 % LAB HEMETOLOGY METHOD 02/14/2025 7:46 PM [facility] Neutrophils Absolute 1.97 1.50 - 7.00 K/mcL LAB HEMETOLOGY METHOD 02/14/2025 7:46 PM [facility] Lymphocytes Absolute 1.84 1.00 - 5.00 K/mcL LAB HEMETOLOGY METHOD 02/14/2025 7:46 PM [facility] Monocytes Absolute 0.20 0.20 - 1.00 K/mcL LAB HEMETOLOGY METHOD 02/14/2025 7:46 PM [facility] Eosinophils Absolute 0.14 0.00 - 0.50 K/mcL LAB HEMETOLOGY METHOD 02/14/2025 7:46 PM [facility] Basophils Absolute 0.02 0.00 - 0.20 K/mcL LAB HEMETOLOGY METHOD 02/14/2025 7:46 PM EDT [facility] Immature Granulocytes Absolute 0.00 0.00 - 0.03 K/[facility] LAB HEMETOLOGY METHOD 02/14/2025 7:46 PM EDT [facility] Blood Venous blood specimen / Unknown Venipuncture / Unknown 02/14/2025 5:07 PM EDT 02/14/2025 5:07 PM EDT Gil PALMER LAB BLOOD ORDERABLES Final Result [facility] [address] [place] [address], [place] [phone] * Poc Rapid [id number], MOLECULAR (02/14/2025 4:37 PM EDT) [facility] COVID-19/SARS- COV-2 Rapid POC Negative Negative Swab Nasopharyngeal structure / Unknown 02/14/2025 4:37 PM EDT Gil PALMER POINT OF CARE TEST ENTER/E DIT ORDERABLES Final Result * POC rapid strep A manually resulted (02/14/2025 4:37 PM EDT) [facility] Rapid Strep A Screen POC Negative Negative Swab Structure of anterior region of neck / Unknown 02/14/2025 4:37 PM EDT Gil PALMER POINT OF CARE TEST ENTER/E DIT ORDERABLES Final Result * Annual BMP Blood Test (04/30/2023) [facility] Annual BMP Blood Test abstracted [facility] Provider HEALTH MAINTENANCE Final Result * (ABNORMAL) Lipid panel (03/31/2023) [facility] LDL/HDL Ratio 4 0 - 4 Triglycerides [...] Recently Relevant to Health Maintenance Insurance [facility] Care Teams Emissions Testing And Repair Technician Relationship Specialty Start Date End Date Yandel Gaines MD [address] [place] [id number] PCP - General Internal Medicine 03/25/21
[2025-05-06 10:32] LABS: Hematocrit 42.3 % (42.0-52.0); Hemoglobin 14.1 g/dl (14.0-18.0); Imm Gran Abs Auto 0.01 X10*3/uL (0.00-0.03); Imm Gran Pct Auto 0.2 % (0.0-0.4); Lymphocytes Absolute Auto 1.4 X10*3/uL (1.2-4.9); MANUAL DIFF FLAG SCAN; Mean Corpuscular HGB Conc 33.3 g/dl (31.0-36.0); Mean Corpuscular Hemoglobin 28.5 pg (27.0-33.0); Mean Corpuscular Volume 85.5 fL (80.0-98.0); NRBC Abs Auto 0.000 X10*3/uL (0.0-0.012); NRBC Pct Auto 0.0 /100WBC (0.0-0.2); PLT CLUMP 1; Red Blood Count 4.95 X10*6/uL (4.60-5.80); SCAN SMEAR FLAG 1
[2025-05-06 10:34] LABS: White Blood Count 6.0 X10*3/uL (4.8-10.8)
[2025-05-06 10:57] LABS: Platelet Count 123 X10*3/uL (160-400)
[2025-05-06 11:05] LABS: Alanine Aminotransferase 35 U/L (0-40); Albumin Level 4.2 g/dL (3.5-5.0); Alkaline Phosphatase 107 U/L (39-117); Anion Gap 11 (12-20); Aspartate Amino Transferase 45 U/L (5-37); Blood Urea Nitrogen 12 mg/dL (9-16); Calcium 9.2 mg/dL (8.4-10.2); Carbon Dioxide 31 mmol/L (22-29); Chloride 105 mmol/L (96-108); Cholesterol 230 mg/dL (<200); Estimated Glomerular Filt Rate > 60; HDL Cholesterol 49 mg/dL (>40); Potassium 3.2 mmol/L (3.3-5.1); Sodium 144 mmol/L (135-145); Total Protein 7.7 g/dL (6.5-8.0); Triglycerides 106 mg/dL (<150)
[2025-05-06 11:27] LABS: Free T4 (Free Thyroxine) 0.99 ng/dL (0.71-1.85); Thyroid Stimulating Hormone 0.82 uIU/mL (0.32-4.0)
[2025-05-06 11:54] LABS: Microalbum/Creatinine Ratio Ur 54.0 ug/mg cr (<30)
== END 2025-05-06 09:03 | disposition home or self-care (01) ==
LOC: HO.LAB 09:02
PROVIDERS: PCP Physician Assistant; Visit Provider Physician Assistant
DX: I10 Essential (primary) hypertension (principal); E87.6 Hypokalemia; R07.9 Chest pain, unspecified; Z76.89 Persons encountering health services in other specified circumstances; Z13.1 Encounter for screening for diabetes mellitus
CPT/HCPCS: 36415; 80048; 80061; 80076; 82043; 82570; 83036; 84133; 84439; 84443; 85025

== ENCOUNTER 2025-05-16 14:01 | Outpatient (AMB) | payer OTHER, SELFPAY ==
--- NOTE | 2025-05-16 14:14 | A.OFFPC_ITS ---
Vital Signs 05/16/25 14:17 05/16/25 14:43 Height 5 ft 9 in Weight 108.068 kg BMI 35.2 BP 142/80 H 154/88 H Respiration 14 Pulse 99 Pulse Source Pulse Oximeter Temp 97.5 F Temp Source Temporal Artery Scan Pulse Oximetry (%) 97 Oxygen Delivery Method Room Air Intake Visit Reasons: BP Check Professor Of Physical Education Required: No Accompanied by: Self / Same As Patient Allergies No Known Allergies (No Known Allergies*) Allergy (Verified 05/16/25 14:15) Tobacco use date assessed: 05/05/25 Dental Screening Dental Screen Date: 05/05/25 HPI HPI Comments History of Present Illness Details 44-year-old male with history of hyperte nsion, irritable bowel syndrome, history of alcohol use disorder presenting to the office today for management of chronic conditions and for follow up. Hypertension-blood pressure in the office today initially 142/80, recheck 154/88. Has been compliant with amlodipine 10 mg daily and losartan 25 mg daily. Not checking blood pressures at home IBS-with diarrhea, very often. Associated with abdominal cramping. He will take loperamide as needed and was started on dicyclomine AUD-in sustained remission. Positive family supports Elevated liver enzymes/thrombocytopenia-has been chronic. Given history, concern for BRYANT versus cirrhosis. Does occasionally endorse right upper quadrant pain Hyperlipidemia-LDL 160 Obesity-BMI 35.2 Concerns: Still experiencing some chest pains. Describes a sharp central pain that lasts for about 20 seconds. There is no radiation. No other associated symptoms. He has gotten some blurred vision at times but no headaches, shortness of breath, weakness, numbness tingling, palpitations, lightheadedness or syncope. Denies any retrosternal chest pressure Health maintenance: Colonoscopies to start at age 45 ROS: see hpi EXAM: Constitutional - Awake and Alert, No apparent distress Eyes - PERRL Cardiovascular - S1S2, RRR, 1+ edema Respiratory - Normal lung expansion, Normal respiratory effort, No respiratory distress, CTA bilaterally Extremities - no calf tenderness bilaterally, no swelling Skin - Warm/Dry Neurological - Alert & oriented x3 Psychological - Appropriate affect [facility] Medical History (Updated 05/16/25 @ 14:49 by SPENCER Quintana) HLD (hyperlipidemia) History of alcohol use disorder Palpitations Chest pain IBS (irritable bowel syndrome) Family History (Updated 05/05/25 @ 15:00 by SPENCER Quintana) Brother HOCM (hypertrophic obstructive cardiomyopathy) Mother HTN (hypertension) Social History Housing: House Patient Tobacco Use Status: Former Tobacco user e-Cigarette/Vaping Use: Never Used service: Yes ([employer]) Current occupational status: employed Current occupation: [employer] Cognitive needs: No Hearing needs: No Vision needs: No Questionnaire Thrive Questionnaire Date Thrive assessed: 05/05/25 AUDIT C Alcohol Use Questionnaire (AUDIT-C) 3. How often do you have six or more drinks on one occasion?: Never Total Score: 0 MARLO-7 AMB Questionnaire MARLO-7 Date MARLO - 7 assessed: 05/05/25 Source: Developed by Drs. Moe Garcia, Destini De La Torre, Troy Bazzi and colleagues, with an educational vazquez from [employer]. Physical exam (Primary Care) Vital Signs: Last Vital Signs Temp 97.5 F 05/16/25 14:17 Pulse 99 05/16/25 14:17 Resp 14 05/16/25 14:17 BP 154/88 H 05/16/25 14:43 Pulse Ox 97 05/16/25 14:17 Oxygen Delivery Method Room Air 05/16/25 14:17 BMI result Body Mass Index 35.2 Tobacco/Smoking Status: Tobacco use Status Tobacco use date assessed 05/05/25 05/16/25 14:18 Patient Tobacco Use Status Former Tobacco user 05/16/25 14:18 e-Cigarette/Vaping Use Never Used 05/16/25 14:18 Thrive Assessment: Date of Thrive Assessment Date Thrive assessed 05/05/25 05/16/25 14:18 Coding Level of Care Code Est Pt Level 4 (80365) Add On Problem Visit Only Diagnoses Poorly-controlled hypertension I10 Chest pain R07.9 Elevated liver enzymes R74.8 Thrombocytopenia D69.6 Microalbuminuria R80.9 Assessment & Plan Assessment & Plan (1) Poorly-controlled hypertension: Code(s): I10 - Essential (primary) hypertension Category: Medical Plan: Increase losartan to 75 mg daily. Continue amlodipine 10 mg daily. We will follow-up in 2 months for blood pressure check following evaluation with echocardiogram and Holter monitor. Advised to check blood pressure levels at home with goal being less than 140/90 (2) Chest pain: Code(s): R07.9 - Chest pain, unspecified Category: Medical Plan: Atypical at this time. However was previously typical likely related to u ncontrolled blood pressures. He does have echocardiogram scheduled. Has family history of HOCM. Given atypical sharp, quick pains, we will hold on stress test for the time being. (3) Elevated liver enzymes: Code(s): R74.8 - Abnormal levels of other serum enzymes Category: Medical Plan: As well as thrombocytopenia. He does have a history of significant alcohol use. Check liver elastography for further evaluation. (4) Thrombocytopenia: Code(s): D69.6 - Thrombocytopenia, unspecified Category: Medical Plan: As above. Per patient, the thrombocytopenia has been stable (5) Microalbuminuria: Code(s): R80.9 - Proteinuria, unspecified Category: Medical Plan: Likely related to his uncontrolled hypertension though GFR is normal. Follow-up with nephrology as scheduled Plan Follow-up in the office in 2 months with labs completed prior to visit Orders: Orders Lipid Panel 2 Months E78.5 - Hyperlipidemia, unspecified, I10 - Essential (primary) hypertension US abdomen limited Today D69.6 - Thrombocytopenia, unspecified, R74.8 - Abnormal levels of other serum enzymes, Z87.898 - Personal history of other specified conditions Basic Metabolic Panel 2 Months E78.5 - Hyperlipidemia, unspecified, I10 - Essential (primary) hypertension Medications: Changed 2 From losartan 25 mg PO DAILY 90 tabs 1RF To losartan 75 mg (3 x 25 mg) PO DAILY 270 tabs 1RF Patient Instructions: Increase losartan to 75 mg daily. Continue amlodipine 10mg daily. Check blood pressure at home- goal is less than 140/90. I will see you in 2 months. However, if blood pressures are consistently elevated, please reach out
[2025-05-16 14:17] VITALS: BP 142/80; PULSE 99; RESP 14; TEMP 36.4; O2SAT 97; BMI 35.2
[2025-05-16 14:43] VITALS: BP 154/88
--- OUTSIDE RECORDS SUMMARY | 2025-05-16 15:16 | XMS_ITS | Clinical Summary ---
Author Organization [facility], Address [address] [place] [address] [place] [address] Phone Care Team Providers Care Business Operations Director Name Role Phone Yandel Gaines MD Primary Care Provider [phone] Allergies No known active allergies Medications lisinopril 20 MG tablet Take 1 tablet by mouth 1 (one) time each day 03/06/2021 Active hydroCHLOROthia zide (MICROZIDE) 12.5 MG capsule Take 1 capsule by mouth 1 (one) time each day 02/28/2021 Active dilTIAZem (TIAZAC) 120 MG 24 hr capsule Take 1 capsule by mouth 1 (one) time each day 02/11/2021 Active Active Problems Problem Noted Date Diagnosed Date Hypertension 07/10/2021 Irritable bowel syndrome 02/07/2019 Thrombocytopenia 12/09/2017 Overview (07/10/2021): Follows with hematology Leukopenia 11/23/2017 Immunizations Immunization Administration Dates Next Due Td 11/30/2014 Tdap 12/01/2018 Social History Tobacco Use Types Packs/Day Years Used Date Smoking Tobacco: Never Smokeless Tobacco: Never Sex and Gender Information Value Date Recorded Sex Assigned at Not on file Legal Sex Male 5:01 PM EDT Gender Identity Not on file Sexual Orientation Not on file Last Filed Vital Signs Vital Sign Reading Time Taken Comments Blood Pressure 143/94 08/21/2021 4:33 PM EDT Pulse - - Temperature - - Respiratory Rate - - Oxygen Saturation - - Inhaled Oxygen Concentration - - Weight - - Height - - Body Mass Index - - Plan of Treatment Health Maintenance Due Date Last Done Comments Hepatitis B Vaccine (1 of 3 - 19+ 3-dose series) 1999 Influenza Vaccine (#1) 2025 Pneumococcal Vaccine: Peds ( 0 to 5 Years) and At-Risk Patients (6 to 49 Years) Aged Out No longer eligible b ased on patient's age to complete this topic Insurance [employer] Care Teams Business Operations Director Relationship Specialty Start Date End Date Yandel Gaines MD PCP - General Internal Medicine 03/19/21
--- OUTSIDE RECORDS SUMMARY | 2025-05-16 15:16 | XMS_ITS ---
Author Organization [address] Address [address] [place] [phone] Phone Care Team Providers Care Pipefitter Helper Name Role Phone Yandel Gaines MD Primary Care Provider [phone] Community Health Worker Program Status:Identified (Enrolling) Start date:05/10/2025 Enrollment reason:Hypertension management Overview Community Health Worker Program Case Team Name Relationship Phone Phillip Schafer(Responsible Staff) Community Health Worker Continued Care and Services Coordination
--- OUTSIDE RECORDS SUMMARY | 2025-05-16 15:16 | XMS_ITS | Clinical Summary ---
Author Organization [facility] Address [address] [place] [address] Phone Care Team Providers Care Mine Motor Operator Name Role Phone Yandel Gaines MD Primary Care Provider [phone] Allergies No known active allergies Medications diclofenac [...] Care Team Description 05/02/2025 Telephone Adult Medicine [facility] [address] [place], [place] [phone] Yandel Gaines MD 02/14/2025 4:15 PM EDT Office Visit Walk-In [facility] - [address] [phone] [place] Pain in throat (Primary Dx) 02/14/2025 Telephone Adult [address] [address] Yandel Gaines MD from Last 3 Months [...] PM EDT Pain in throat POC RAPID [id number], MOLECULAR Routine 02/14/2025 4:37 PM EDT Pain [...] LAB CHEMISTRY METHOD 02/14/2025 8:15 PM EDT [facility] Blood Venous blood specimen / Unknown Venipuncture / Unknown 02/14/2025 5:07 PM EDT 02/14/2025 5:07 PM EDT Gil [facility] LAB BLOOD ORDERABLES Final Result [facility] [address] [place] [address], * (ABNORMAL) CBC auto differential (02/14/2025 5:07 PM EDT) WBC 4.2(L) 4.8 - 10.8 K/mcL LAB HEMETOLOGY METHOD 02/14/2025 7:46 PM EDT [facility] RBC 4.70 4.50 - 5.50 M/mcL LAB HEMETOLOGY METHOD 02/14/2025 7:46 PM EDT [facility] Hemoglobin 13.6 13.5 - 17.5 g/dL LAB HEMETOLOGY METHOD 02/14/2025 7:46 PM EDT [facility] Hematocrit 40.5(L) 42.0 - 54.0 % LAB HEMETOLOGY METHOD 02/14/2025 7:46 PM EDT [facility] MCV 85.6 79.0 - 98.0 FL LAB HEMETOLOGY METHOD 02/14/2025 7:46 PM EDT [facility] MCH 28.8 27.0 - 32.0 pcg LAB HEMETOLOGY METHOD 02/14/2025 7:46 PM EDT [facility] MCHC 33.6 32.0 - 37.0 g/dL LAB HEMETOLOGY METHOD 02/14/2025 7:46 PM EDT [facility] RDW 14.8 11.0 - 15.0 % LAB HEMETOLOGY METHOD 02/14/2025 7:46 PM EDT [facility] Platelets 136 130 - 400 K/mcL LAB HEMETOLOGY METHOD 02/14/2025 7:46 PM EDT [facility] MPV LAB HEMETOLOGY METHOD 02/14/2025 7:46 PM EDT [facility] Comment:Not Measured NRBC 0.0 <1.0 % LAB HEMETOLOGY METHOD 02/14/2025 7:46 PM [facility] NRBC Absolute 0.00 <0.10 K/mcL LAB HEMETOLOGY METHOD 02/14/2025 7:46 PM [facility] Neutrophils Relative 47.2 % LAB HEMETOLOGY METHOD 02/14/2025 7:46 PM [facility] Lymphocytes Relative 44.1 % LAB HEMETOLOGY METHOD 02/14/2025 7:46 PM [facility] Monocytes Relative 4.8 % LAB HEMETOLOGY METHOD 02/14/2025 7:46 PM [facility] Eosinophils Relative 3.4 % LAB HEMETOLOGY METHOD 02/14/2025 7:46 PM [facility] Basophils Relative 0.5 % LAB HEMETOLOGY METHOD 02/14/2025 7:46 PM [facility] Immature Granulocytes Relative 0.0 % LAB HEMETOLOGY METHOD 02/14/2025 7:46 PM [facility] Neutrophils Absolute 1.97 1.50 - 7.00 K/mcL LAB HEMETOLOGY METHOD 02/14/2025 7:46 PM [facility] Lymphocytes Absolute 1.84 1.00 - 5.00 K/mcL LAB HEMETOLOGY METHOD 02/14/2025 7:46 PM [facility] Monocytes Absolute 0.20 0.20 - 1.00 K/mcL LAB HEMETOLOGY METHOD 02/14/2025 7:46 PM [facility] Eosinophils Absolute 0.14 0.00 - 0.50 K/mcL LAB HEMETOLOGY METHOD 02/14/2025 7:46 PM [facility] Basophils Absolute 0.02 0.00 - 0.20 K/mcL LAB HEMETOLOGY METHOD 02/14/2025 7:46 PM EDT [facility] Immature Granulocytes Absolute 0.00 0.00 - 0.03 K/[facility] LAB HEMETOLOGY METHOD 02/14/2025 7:46 PM EDT [facility] Blood Venous blood specimen / Unknown Venipuncture / Unknown 02/14/2025 5:07 PM EDT 02/14/2025 5:07 PM EDT [facility] LAB BLOOD ORDERABLES Final Result [facility] [address] [place] [address], [place] [phone] * Poc Rapid [id number], MOLECULAR (02/14/2025 4:37 PM EDT) [facility] COVID-19/SARS- COV-2 Rapid POC Negative Negative Swab Nasopharyngeal structure / Unknown 02/14/2025 4:37 PM EDT Gil PALMER POINT OF CARE TEST ENTER/E DIT ORDERABLES Final Result * POC rapid strep A manually resulted (02/14/2025 4:37 PM EDT) [facility] Rapid Strep A Screen POC Negative Negative Swab Structure of anterior region of neck / Unknown 02/14/2025 4:37 PM EDT Gil PALMER POINT OF CARE TEST ENTER/E DIT ORDERABLES Final Result * Annual BMP Blood Test (04/30/2023) [facility] Annual BMP Blood Test abstracted [facility] Provider HEALTH MAINTENANCE Final Result * (ABNORMAL) Lipid panel (03/31/2023) [facility] LDL/HDL Ratio 4 0 - [...] Most Recently Relevant to Health Maintenance Insurance [facility] Care Teams Mine Motor Operator Relationship Specialty Start Date End Date Yandel Gaines MD [address] [place] [id number] PCP - General Internal Medicine 03/25/21
--- OUTSIDE RECORDS SUMMARY | 2025-05-16 15:16 | XMS_ITS | Encounter Summary ---
Author Organization [facility] Address [address] [place] [address] Phone Care Team Providers Care Head Of Housekeeping Name Role Phone Yandel Gaines MD Primary Care Provider [phone] Encounter Details Date Type Department Care Team (Late st Contact Info) Description 09/27/2021 Documentation Only [facility], [address] [place] [address] Karissa Helm, BELLMAN CAPTAIN-C [address] [place] [id number] Social History Tobacco Use Types Packs/Day Years Used Date Smoking Tobacco: Never Smokeless Tobacco: Never Sex and Gender Information Value Date Recorded Sex Assigned at Not on file Legal Sex Male 5:01 PM EDT Gender Identity Not on file Sexual Orientation Not on file documented as of this encounter Plan of Treatment Not on file documented as of this encounter Visit Diagnoses Not on filedocumented in this encounter Care Teams Head Of Housekeeping Relationship Specialty Start Date End Date Yandel Gaines MD PCP - General Internal Medicine 03/19/21 documented as of this encounter
== END 2025-05-16 14:51 | disposition home or self-care (01) ==
LOC: HO.HMCHD 14:02
PROVIDERS: PCP Physician Assistant; Visit Provider Physician Assistant
DX: I10 Essential (primary) hypertension (principal); R07.9 Chest pain, unspecified; R74.8 Abnormal levels of other serum enzymes; D69.6 Thrombocytopenia, unspecified; R80.9 Proteinuria, unspecified